=== PATIENT | male | born 1955 | race Caucasian/White ===

== ENCOUNTER 2017-05-30 11:47 | Emergency (ER) | END 2017-05-30 13:05 | disposition home or self-care (01) ==

== ENCOUNTER 2018-04-18 17:02 | Emergency (ER) | payer MEDICAID, OTHER ==
[~2018-04-18] VITALS: Ht 170.2 cm; Wt 95.8 kg
[~2018-04-18 17:02] MED LIST: CYCL10TA7 PO; METF-849 PO; PRED20TA PO
[2018-04-18 17:08] VITALS: Ht 170.2 cm; Wt 95.8 kg
[2018-04-18] MEDS ORDERED: AMOX1TAB10 PO (18:26)
[2018-04-18] MEDS ORDERED: ACET500C5 PO (18:26)
--- NOTE | 2018-04-18 18:28 | ERD ---
ER Documentation Chief Complaint Chief Complaint DOG BITE TO L-KNEE TODAY; SMALL ABRASION NOTED HPI 62-year-old male presents after sustaining a dog bite from the ulnar nerve is house today. He has some bleeding and laceration on the left medial knee. Denies restricted range of motion, weakness, bleeding, discharge, redness, fevers, additional symptoms. ROS All systems reviewed and are negative except as per history of present illness. Medications Home Meds Active Scripts Acetaminophen* (Tylophen*) 500 Mg Capsule, 1 CAP PO Q6H PRN for PAIN AND OR ELEVATED TEMP, #15 CAP Prov:EDITH SAAB MD 04/18/18 Amoxicillin/Potassium Clav (Amox-Clav 875-125 mg Tablet) 875-125 mg Tab, 1 TAB PO BID for 7 Days, #14 TAB Prov:EDITH SAAB MD 04/18/18 Prednisone* (Prednisone*) 20 Mg Tab, 20 MG PO DAILY for 5 Days, #5 TAB Prov:TERENCE GARZA PA-C 05/30/17 Cyclobenzaprine Hcl* (Cyclobenzaprine Hcl*) 10 Mg Tablet, 10 MG PO TID, #15 TAB Prov:TERENCE GARZA PA-C 05/30/17 Metformin* (Glucophage*) 500 Mg Tab, 500 MG PO BID, #60 TAB Prov:TERENCE GARZA PA-C 05/30/17 PMhx/Soc Hx Miscellaneous Medical Probl: Yes (Sciatica) Hx Alcohol Use: No Hx Substance Use: No Hx Tobacco Use: No Smoking Status: Never smoker FmHx Family History: No diabetes, No coronary disease, No other Physical Exam Vitals Vital Signs Date Temp Pulse Resp B/P (MAP) Pulse Ox O2 O2 Flow FiO2 Time Delivery Rate 04/18/18 99.2 103 20 127/74 97 17:08 (91) Physical Exam Const: No acute distress Head: Atraumatic Eyes: Normal Conjunctiva ENT: Normal External Ears, Nose and Mouth. Neck: Full range of motion. No meningismus. Resp: Clear to auscultation bilaterally Cardio: Regular rate and rhythm, no murmurs Abd: Soft, non tender, non distended. Normal bowel sounds Skin: No petechiae or rashes. Left medial knee shows approximately 0.75 cm superficial laceration or puncture wound without active bleeding, redness, bleeding or discharge present effusion, deformities. No calf swelling, restricted range of motion weakness. Back: No midline or flank tenderness Ext: No cyanosis, or edema Neur: Awake and alert Psych: Normal Mood and Affect Results 24 hrs Current Medications Medications Dose Sig/Tiera Start Time Status Last (Trade) Ordered Route PRN Stop Time Admin Dose Reason Admin Diphtheria/ 0.5 ml ONCE ONCE 04/18/18 Tetanus/Acell IM* 18:30 04/18/18 Pertussis 18:31 (Adacel) Procedures/MDM Patient presents with a superficial laceration from a dog bite today on his left medial knee. There is no current signs of infection, deficits, signs or symptoms to suggest fracture, foreign body, additional complications. He was given a tetanus booster. He will be discharged home with recommendations for a wound check in 2 days, otherwise Tylenol for pain and Augmentin for prophylaxis. The patient was stable with no new complaints during the ER course. Clinically, there is no current evidence to suggest meningitis, sepsis, acute abdomen, pneumonia, stroke, acute coronary syndrome, pulmonary embolism, aortic dissection or any other emergent condition appearing to require further evaluation or hospitalization. Patient counseled regarding my diagnostic impression and care plan. Prior to discharge all questions answered. Pt agrees with treatment plan and understands strict return precautions. Pt is instructed to follow up with primary care provider within 24-48 hours. Precautionary instructions provided including instructions to return to the ER if not improving or for any worsening or changing symptoms or concerns. Departure Diagnosis: Primary Impression: Dog bite Encounter type: initial encounter Qualified Codes: W54.0XXA - Bitten by dog, initial encounter Condition: Stable Patient Instructions: Dog Bite Additional Instructions: cheque 2 leon para mas gallegos , echada , nueva simptomas. EDITH SAAB MD Apr 18, 2018 18:28
[2018-04-18] MEDS ORDERED: DIPHTH/TET/ACEL PERTUSS (ADULT) 0.5 ML VIAL IM* ONE (18:30)
[2018-04-18 18:54] VITALS: BP 125/79; PULSE 92; RESP 18
== END 2018-04-18 18:55 | disposition home or self-care (01) ==
LOC: FTE 17:02
DX: S81.032A Puncture wound without foreign body, left knee, initial encounter (principal); W54.0XXA Bitten by dog, initial encounter; Y92.9 Unspecified place or not applicable; Z23 Encounter for immunization; Z79.84 Long term (current) use of oral hypoglycemic drugs
CPT/HCPCS: 90471; 90715; Z7502